=== PATIENT | female | born 1945 ===

== ENCOUNTER → 2023-02-26 10:27 | Outpatient (CLI) | payer OTHER, SELFPAY ==
--- NOTE | ~2023-02-26 | MR_ITS ---
MRI of the right shoulder Technique: Axial proton-density fat-sat images, coronal proton density fat-sat and T2 fat-sat images, and sagittal T1-weighted and T2 fat-sat images were acquired. 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 Coracoclavicular, coracoacromial, and coracohumeral ligaments appear intact. There is complete, full-thickness tear involving the entire supraspinatus tendon, which is retracted to the superior aspect of the humeral head. Fluid-filled gap measures 2.6 x 2.1 cm. Infraspinatus ten don is intact with mild tendinosis. Subscapularis tendon is intact. Tendon of the long head of the bi ceps is intact. No definite labral tear identified. Inferior glenohumeral ligament is intact. There is small glenohumeral joint effusion, with fluid pass ing through the rotator cuff defect into the subacromial/subdeltoid bursa. There is also fluid disten tion of the subcoracoid bursa. No degenerative change of the humeral head. No muscle atrophy or edema . 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 No labral tear evident. Reviewed, dictated and finalized at [facility]. E OPERATOR Impression: Complete, full-thickness tear of the entire supraspinatus tendon, as detailed a riky. 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 No labral tear evident.
== END ==
PROVIDERS: PCP Physician Assistant; Visit Provider Physician Assistant
DX: M75.121 Complete rotator cuff tear or rupture of right shoulder, not specified as traumatic (principal)
CPT/HCPCS: 73221